=== PATIENT | female | born 1960 | race Caucasian/White ===

== ENCOUNTER 2025-04-25 18:39 | Emergency (ER) | payer MEDICARE, BC, SELFPAY ==
[2025-04-25 18:46] VITALS: BP 123/87
[2025-04-25 23:11] VITALS: BMI 23.3
[2025-04-25] MEDS: ADACEL 0.5 ML IM (23:13)
[2025-04-25] MEDS: TYLENOL 1000 MG PO (23:15)
[2025-04-25 23:25] VITALS: BP 128/82
--- NOTE | 2025-04-26 00:27 | ED.MUSCINJ ---
HPI-Injury
General
Chief Complaint: Fall
Source: patient and family
Exam Limitations: none
Time Seen by Provider: 04/25/25 19:30
Nursing documentation reviewed up to this point in time: agreed with
History of Present Illness-Injury
Is this injury a work related problem?: No
Is pt an associate of [facility]/[place]?: No
Initial Injury comments:
Patient fellwhile playing with grandson. Hit face on pavement. No LOC. Has large laceration to forehead, swelling and paiin to nose, laceration to lower lip, pain to right shoulder. Brought to ED by daughters for eval. Incident occurred just [employer]
Past History
Past History
ED Past Medical History: None
Review of Systems
Review of Systems
Allergies reviewed?: Yes
All Other Systems: ROS reviewed and negative except as documented in HPI and ROS
Constitutional: Reports no symptoms
EENT: Reports other (right lower lip laceratoin)
Respiratory: Reports no symptoms
Cardiac: Reports no symptoms
ABD/GI: Reports no symptoms
Musculoskeletal: Reports joint pain (pain to right shoulder,nose)
Skin: Reports other (Laceration to forehead, laceration to lower lip)
Neurological: Reports headache
Psychiatric: Reports no symptoms
Musculoskeletal Injury Exam
Musculoskeletal Injury Exam
Right Shoulder:
Pain with Movement?: Moderate
Tender to palpation?: Moderate
Soft tissue swelling?: None
External deformity and angulation?: None
Joint effusion?: None
Contusion?: Moderate
Hematoma-local bleeding into tissue?: None
Strain- Sprain- Tear (Connective tissue injury)?: Moderate
Crepitus with movement?: No
Joint instability?: No
Malalignment/deformity?: No
Range of motion: Full
Distal skin color and temperature: normal-warm & good color
Capillary Refill: normal
Normal distal neurovascular exam?: Yes
Nose:
Pain with Movement?: Moderate
Tender to palpation?: Moderate
Soft tissue swelling?: Moderate
External deformity and angulation?: None
Joint effusion?: None
Contusion?: Moderate
Hematoma-local bleeding into tissue?: Moderate
Crepitus with movement?: No
Joint instability?: No
Malalignment/deformity?: No
Distal skin color and temperature: normal-warm & good color
Capillary Refill: normal
Normal distal neurovascular exam?: Yes
Skin Exam
Laceration
Forehead:
Length in cm: 5
Orientation: horizontal
Type of Laceration: layered
Any active bleeding?: low grade venous oozing
Distal skin color and temperature: normal-warm & good color
Normal distal neurovascular exam: Yes
Range of motion: full
Phy Exam
General Physical Exam
General Presentation: moderate distress
General age: appears stated age
General Skin: warm and dry
General Habitus: normal
General Mental: alert
Eye Exam
Eye Exam: PERRL, EOMI and conjunctiva normal
Neurological Exam
Neurological Exam: alert, oriented x3, CN II-XII intact, no motor deficits, no sensory deficits and speech normal
Jasmina Coma Scale
Eye Opening: Spontaneous
Verbal Response: Oriented
Motor Response: Obeys Commands
GCS Total Score: 15
Musculoskeletal Exam
Musculoskeletal Exam: full ROM, neuro vasc intact and other (Full nonpainful ROM to head/neck, back, upper and lower extremities)
Skin Exam
Skin Exam: normal color, warm/dry, no rash and other (laceration to forhead, right lower lip)
Psychiatric Exam
Psychiatric Exam: normal mood/affect
Injury Course
Orders/Labs/Results
Orders:
Orders
04/25/25 18:[address] [CT Head W/o Iv Contrast] Urgent
Comment:
Reason For Exam: fall on thinners with head injury
04/25/25 21:05
Tetanus/Diphth/Acelpertussis [Adacel] 0.5 ml IM .ONCE ONE
Nasal Bones, complete 3 Views [CR Nasal Bones Comp Min 3 View] Urgent
Comment:
Reason For Exam: trauma
Shoulder, Right, Trauma [CR Shoulder, Trauma - Right] Urgent
Comment:
Reason For Exam: trauma
04/25/25 23:02
Acetaminophen [Tylenol] 1,000 mg PO NOW STA
Procedures
Laceration Closure
Forehead:
Status of Wound: clean
Description of Wound Edges: sharp
Preparation: cleaned with saline
Anesthesia: 1% Lidocaine with epi
Revision/Debridement: routine- no revision
Wound exploration: explored to base- no FB
Type of Closure: layered closure
Skin Closure Material: 6-0 prolene (12) and 5-0 chromic gut (6)
*Radiology
Radiology exam reviewed: radiology read reviewed
*Pulse Oximetry
Patient hypoxic: no
*Critical Care Note
Total Time (30-74mins, 75-104mins- exclusive of procedures): Not Applicable
Update Note
Update Note:
Patient to ED s/p fall. Sustained laceratin to forehead and lower lip. Lower lip laceration involving buccal mucosa, no closure indicated. No dental injury. Forehead laceration repaired using layered closure, tolerated well. Head CT neg for
acute findings, no fx to right shoulder or nasal bone. Will discharge home, follow upw ith PCP. Velma instructions on s/s to return to ED and she is agreeable to plan.
ED Attending Note
-
Portions of this chart may have been created with voice recognition software.� Occasional wrong word or��sound alike� substitutions may have occurred due to the inherent limitations of voice recognition software.
Discharge Plan
Departure
Patient Disposition: Home (Routine Discharge)
Date of Disposition: 04/25/25
Time of Disposition: 22:00
Patient with high blood pressure during this ER visit?: No
Condition: Good
Covid-19: Not Applicable
Discharge Problem:
Head injury, Forehead laceration, Contusion of nose, Contusion of right shoulder
Instructions: Concussion, Adult (DC), Wound Care (DC), Head Injury in Adults (DC), Contusion (DC), Laceration Repair With Stitches (DC), Preventing falls in adults
Referrals:
PRIVATE,PHYSICIAN [Family Provider, Internal Medicine]
Activity Restrictions/Additional Instructions:
Sutures can be removed in 5-7 days by your family doctor
Interventions
Interventions:
*Risk Screen - Suicide Last Done: 04/25/25 18:46
*General Assessment Last Done: 04/25/25 18:56
*Neglect/Abuse Screening Last Done: 04/25/25 18:46
*ED- Fall Risk Assessment Last Done: 04/25/25 19:31
*ED COVID-19 Vaccine History Last Done: 04/25/25 18:56
*Nursing Disposition Last Done: 04/25/25 23:42
ED-Musculoskeletal Assessment Last Done: 04/25/25 22:54
ED- Neurological Assessment Last Done: 04/25/25 22:54
ED-Skin Assessment Last Done: 04/25/25 22:54
Discharge Date and Time
Discharge Date/Time: 04/25/25 23:42
Print Language: MALAGASY
== END 2025-04-25 23:42 | disposition home or self-care (01) ==
LOC: EMR 18:39
PROVIDERS: EMERGENCY PHYSICIAN Student in an Organized Health Care Education/Training Program
DX: S01.81XA Laceration without foreign body of other part of head, initial encounter (principal); S40.011A Contusion of right shoulder, initial encounter; W19.XXXA Unspecified fall, initial encounter; Z23 Encounter for immunization
CPT/HCPCS: 12052; 90471; 99284; 70160; 70450; 73030; 90715